=== PATIENT | female | born 1990 | race Caucasian/White ===

== ENCOUNTER → 2022-02-25 11:49 | Outpatient (BNVA) | payer SELFPAY | PROVIDERS: Visit Provider Nurse Practitioner Women's Health | DX: N92.6 Irregular menstruation, unspecified (principal); Z12.4 Encounter for screening for malignant neoplasm of cervix | CPT/HCPCS: 84146; 84439; 84443; 84702; 85025; 87624 ==

== ENCOUNTER → 2022-03-24 14:27 | Outpatient (BNVA) | payer SELFPAY | PROVIDERS: Visit Provider Nurse Practitioner Women's Health | DX: N92.6 Irregular menstruation, unspecified (principal) | CPT/HCPCS: 76830 ==

== ENCOUNTER → 2022-03-25 10:51 | Outpatient (BNVA) | payer SELFPAY | PROVIDERS: Visit Provider Nurse Practitioner Women's Health | DX: N92.6 Irregular menstruation, unspecified (principal); N93.9 Abnormal uterine and vaginal bleeding, unspecified; D25.9 Leiomyoma of uterus, unspecified | CPT/HCPCS: 81025; 88305 ==

== ENCOUNTER 2022-07-09 17:10 | Emergency (ER) | payer BC, SELFPAY ==
[2022-07-09 17:23] VITALS: BP 142/93; PULSE 89; RESP 20; TEMP 36.7; O2SAT 98; BMI 33.3
[2022-07-09 18:28] LABS: Basophils # 0.1 10^3/uL (0.0-0.1); Basophils % 0.7 %; Eosinophils # 0.6 10^3/uL (0.0-0.8); Eosinophils % 4.9 %; Hematocrit 40.4 % (37.0-47.0); Hemoglobin 13.2 g/dL (11.5-15.3); Lymphocytes # 2.9 10^3/uL (0.8-4.8); Lymphocytes % 25.2 %; Mean Corpuscular HGB Conc 32.7 g/dL (30.0-36.0); Mean Corpuscular Hemoglobin 27.8 pg (28.0-34.0); Mean Corpuscular Volume 85.1 fl (81-99); Mean Platelet Volume 9.5 fL (7.4-10.4); Monocytes % 8.6 %; Neutrophils # 6.95 10^3/uL (1.8-7.7); Nucleated Red Blood Cells % 0 %; Platelet Count 514 10^3/cmm (130-400); Red Blood Count 4.75 10^6/uL (4.1-5.3); White Blood Count 11.6 10^3/uL (4.0-10.0)
[2022-07-09 18:43] LABS: HCG, Serum Qual Negative (Negative)
[2022-07-09 18:46] LABS: Alanine Aminotransferase 40 U/L (0-33); Alkaline Phosphatase 91 U/L (35-105); Anion Gap 14.2 (5-19); Aspartate Amino Transferase 23 U/L (0-32); Blood Urea Nitrogen 8 mg/dL (6-20); Calcium 9.3 mg/dL (8.5-10.5); Carbon Dioxide 22 mmol/L (22-29); Chloride 106 mmol/L (98-107); Globulin 2.5 g/dL (1.3-4.6); Glomerular Filtration Rate 95.8 mL/min (90-130); Glucose 115 mg/dL (65-115); Osmolality Calculated 285 mOsm/kg (285-295); Potassium 4.2 mmol/L (3.5-5.1); Sodium 138 mmol/L (136-145); Total Bilirubin 0.2 mg/dL (0.15-1.2); Total Protein 6.5 g/dL (6.6-8.7)
--- NOTE | 2022-07-09 19:24 | ED_ITS ---
HPI - Female Genitourinary General: Chief complaint: Urogenital-Female Stated complaint: heavy vaginal bleeding x2days Time Seen by Provider: 07/09/22 19:17 Source: patient Mode of arrival: ambulatory Limitations: no limitations History of Present Illness: This patient comes to the emergency department today because she has had heavier than usual bleeding over the past 2 days. She states she has been changing a pad every hour or so and she is also been passing clots. This is unusual for her. She denies any fevers or chills. She denies any syncope, pelvic pain, fevers chills etc. She states she is been taking all her prescribed medications. She does not take any anticoagulants or antiplatel et medications and does not have a history of bleeding disorder. Vaginal bleeding: heavy, clots and # pads per hour (1) Associated symptoms: Reports no associated symptoms; Deny abdominal pain, headache(s), nausea or syncope Related Data: : 0 Para: 0 Review of Systems Const: Denies: fever(s) or chills Eyes: Denies: change in vision ENMT: Denies: throat pain, odynophagia, nasal discharge or nasal congestion Card: Denies: chest pain, palpitations, syncope or pre-syncope Resp: Denies: dyspnea, productive cough or non-productive cough GI: Denies: abdominal pain, nausea or vomiting : Reports: vaginal bleeding; Denies: difficulty voiding or dysuria Musc: Denies: back pain, extremity pain or extremity swelling Neuro: Denies: headache(s), numbness in extremities or weakness in extremities Endo: Denies: polyuria, polydipsia or tired all the time PFSH ED 2 PFSH: Medical History Hypertension No pertinent past medical history neghx: dm,thyroid,dvt/pe PCP: Amanda Hardwick Schizo affective schizophrenia Surgical History No pertinent past surgical history Family History Mother Diabetes Hypertension Stroke Endometriosis Father Heart disease Hypertension Stroke Grandfather Heart disease Paternal Hypertension Maternal and Paternal Grandmother Hypertension Maternal and Paternal Ovarian cancer Maternal--dx age 60's Denies family history of Colon cancer Hypercholesteremia Breast cancer Uterine cancer Thyroid disease Social History Smoking and tobacco status: former smoker (quit in 2011) Female Reproductive History: : 0 Physical Exam Narrative: EXAM NARRATIVE: Eye contact appears to be in no acute distress. Answers questions appropriately in a goal-directed fashion. Const: COMMON NORMALS: no acute distress, patient oriented x3 and alert NUTRITIONAL APPEARANCE: overweight HENMT: COMMON NORMALS: normocephalic and Normal nasal mucous membranes and turbinates present HEAD & SCALP: normocephalic NOSE: Normal nasal mucous membranes and turbinates present Eye: COMMON NORMALS: Equal, round and reactive pupils present PUPIL: Yes Equal, round and reactive pupils present Neck/C-Spine: COMMON NORMALS: full ROM Resp: COMMON NORMALS: normal respiratory effort, No retractions and No use of accessory muscles : COMMON NORMALS: Yes no CVA tenderness BLADDER/KIDNEY EXAM: Yes no CVA tenderness Back/Pelvis: COMMON NORMALS: no CVA tenderness and thoracic and lumbar spine normal to inspection Extremity: COMMON NORMALS: normal to inspection and full ROM Neuro: COMMON NORMALS: patient oriented x3, moves all extremities, no focal motor deficits and no sensory deficits noted SENSORIUM/ORIENTATION: Yes alert Psych: COMMON NORMALS: mental status grossly normal Skin: COMMON NORMALS: no rashes or lesions noted GENERAL SKIN EXAM: no rashes or lesions noted Course Consultations: Consultation #1: Discussed with Dr. Diaz regarding potential treatment options. Time: 19:41 Vital Signs: Vital signs: Vital Signs Temperature 98.0 F 07/09/22 17:23 Pulse Rate 88 07/09/22 19:26 Respiratory Rate 16 07/09/22 19:26 Blood Pressure 142/109 07/09/22 19:26 Pulse Oximetry 98 07/09/22 19:26 Oxygen Delivery Me thod 07/09/22 19:[address] [facility] - Female Medical Decision Making This patient presented to emergency department with a history of abnormal vagina l bleeding likely as result of a combination of polycystic ovarian disease as well as a large uterine fibroid. She was concerned because she had heavier bleeding over the past 2 days with clot formation. No syncope or other concerning findings to include abdominal pain etc. Her work-up today revealed a negative hCG as well as a hemoglobin and platelet count essentially unchanged from previous. Clinical exam was also reassuring. Her case was discussed with on-call HOME STAGING SPECIALIST as well. We discussed options to include a short course of TXA as well as a short course of anti-inflammatories and given the risk-benefit profile of each the latter was chosen in an attempt to reduce her bleeding but however she was again reassured by our discussion that her hemoglobin and other blood parameters were reassuring and unchanged. Is being discharged in a stable condition with follow-up in 2 weeks as scheduled for her surgery we also discussed return precautions should she have heavier bleeding, syncope, or other concerning symptoms at any time. Medical Records I reviewed the patient's medical records. Reviewed notes from HOME STAGING SPECIALIST work-up that if been significant for abnormal vaginal bleeding likely due to PCOS. She also has a uterine fibroid which may be a contributing factor as well. Lab Data I reviewed the patient's lab results. 07/09/22 18:10 07/09/22 18:10 Laboratory Results WBC 11.6 10^3/uL (4.0-10.0) H 07/09/22 18:10 RBC 4.75 10^6/uL (4.1-5.3) 07/09/22 18:10 Hgb 13.2 g/dL (11.5-15.3) 07/09/22 18:10 Hct 40.4 % (37.0-47.0) 07/09/22 18:10 MCV 85.1 fl (81-99) 07/09/22 18:10 MCH 27.8 pg (28.0-34.0) L 07/09/22 18:10 MCHC 32.7 g/dL (30.0-36.0) 07/09/22 18:10 RDW 13.0 % (12.1-15.1) 07/09/22 18:10 Plt Count 514 10^3/cmm (130-400) H 07/09/22 18:10 MPV 9.5 fL (7.4-10.4) 07/09/22 18:10 Neut % (Auto) 60.0 % 07/09/22 18:10 Lymph % (Auto) 25.2 % 07/09/22 18:10 [place] % (Auto) 8.6 % 07/09/22 18:10 Eos % (Auto) 4.9 % 07/09/22 18:10 Baso % (Auto) 0.7 % 07/09/22 18:10 Neut # (Auto) 6.95 10^3/uL (1.8-7.7) 07/09/22 18:10 Lymph # (Auto) 2.9 10^3/uL (0.8-4.8) 07/09/22 18:10 [place] # (Auto) 1.0 10^3/uL (0.2-0.9) H 07/09/22 18:10 Eos # (Auto) 0.6 10^3/uL (0.0-0.8) 07/09/22 18:10 Baso # (Auto) 0.1 10^3/uL (0.0-0.1) 07/09/22 18:10 Nucleated RBC % (auto) 0 % 07/09/22 18:10 Nucleated RBCs # 0.0 /100WBC 07/09/22 18:10 Sodium 138 mmol/L (136-145) 07/09/22 18:10 Potassium 4.2 mmol/L (3.5-5.1) 07/09/22 18:10 Chloride 106 mmol/L (98-107) 07/09/22 18:10 Carbon Dioxide 22 mmol/L (22-29) 07/09/22 18:10 Anion Gap 14.2 (5-19) 07/09/22 18:10 BUN 8 mg/dL (6-20) 07/09/22 18:10 Creatinine 0.7 mg/dL (0.5-0.9) 07/09/22 18:10 GFR Calculation 95.8 mL/min (90-130) 07/09/22 18:10 Glucose 115 mg/dL (65-115) 07/09/22 18:10 Calculated Osmolality 285 mOsm/kg (285-295) 07/09/22 18:10 Calcium 9.3 mg/dL (8.5-10.5) 07/09/22 18:10 Total Bilirubin 0.2 mg/dL (0.15-1.2) 07/09/22 18:10 AST 23 U/L (0-32) 07/09/22 18:10 ALT 40 U/L (0-33) H 07/09/22 18:10 Alkaline Phosphatase 91 U/L (35-105) 07/09/22 18:10 Total Protein 6.5 g/dL (6.6-8.7) L 07/09/22 18:10 Albumin 4.0 g/dL (3.5-5.2) 07/09/22 18:10 Globulin 2.5 g/dL (1.3-4.6) 07/09/22 18:10 HCG, Qual Negative (Negative) 07/09/22 18:10 Discharge Plan Discharge Patient Disposition: Home Clinical Impression: Abnormal vaginal bleeding Condition: Stable Prescriptions: New naproxen sodium [Anaprox DS] 550 mg tablet 550 mg PO BID Qty: 20 0RF No Action metoprolol tartrate 25 mg tablet 12.5 mg PO BID venlafaxine 150 mg tablet extended release 24 hr 150 mg PO DAILY bupropion HCl [Wellbutrin XL] 300 mg tablet extended release 24 hr 300 mg PO QAM lisinopril 20 mg tablet 20 mg PO DAILY risperidone [Risperdal] 2 mg tablet 2 mg PO DAILY hydroxyzine HCl 25 mg tablet 25 mg PO BID PRN multivitamin Tablet 1 tab PO DAILY tranexamic acid [Lysteda] 650 mg tablet 1,300 mg PO TID 5 Days Qty: 30 0RF Discharge Orders: Discharge ED (Routine); Ordered 07/09/22 Ordered By: Jarret Vidales Referrals: Jarret Johnson MD [Physician] - 2 weeks Amanda Hardwick [Primary Care Provider] - Discharge Diet: Usual diet Discharge Activity: Increase activity as tolerated Patient Instructions: Opioid Safety, Pain Management Activity Restrictions/Additional Instructions: Continue all your usual prescribed medications. In addition we have prescribed a medicine to take 1 pill twice daily for the next 5 or so days to help reduce your bleeding and other discomfort. Should your bleeding continue or at the s conrad level or increase or you develop symptoms of fatigue, passing out etc. return to this emergency department immediately. Otherwise follow-up with Dr. Johnson as scheduled for your surgery. Coding Level of Care Code ED Mechanic Chief for Monica Thacker
[2022-07-09 19:26] VITALS: BP 142/109; PULSE 88; RESP 16; O2SAT 98
[2022-07-09] MEDS: naproxen 500 mg Tablet PO (19:59)
[2022-07-09 20:02] VITALS: PULSE 84; RESP 16; O2SAT 100
== END 2022-07-09 20:03 | disposition home or self-care (01) ==
PROVIDERS: Emergency Medicine; Emergency Provider Emergency Medicine; PCP Nurse Practitioner Family
DX: N93.9 Abnormal uterine and vaginal bleeding, unspecified (principal)
CPT/HCPCS: 36415; 80053; 84703; 85025; 99283

== ENCOUNTER 2022-07-22 12:26 | Observation (INO) | payer BC, SELFPAY ==
[2022-07-20 11:56] VITALS: BMI 36.9
[2022-07-20 12:04] LABS: Add Urine Microscopic? NO; Charge for UA Resulting for Rev
[2022-07-20 12:06] LABS: Basophils # 0.1 10^3/uL (0.0-0.1); Basophils % 0.6 %; Eosinophils # 0.4 10^3/uL (0.0-0.8); Eosinophils % 4.4 %; Hematocrit 37.6 % (37.0-47.0); Lymphocytes # 2.1 10^3/uL (0.8-4.8); Lymphocytes % 23.9 %; Mean Corpuscular HGB Conc 31.9 g/dL (30.0-36.0); Mean Corpuscular Hemoglobin 27.3 pg (28.0-34.0); Mean Corpuscular Volume 85.6 fl (81-99); Mean Platelet Volume 9.7 fL (7.4-10.4); Monocytes # 0.8 10^3/uL (0.2-0.9); Monocytes % 9.3 %; Neutrophils # 5.44 10^3/uL (1.8-7.7); Neutrophils % 61.2 %; Nucleated Red Blood Cells % 0 %; Platelet Count 424 10^3/cmm (130-400); Red Blood Count 4.39 10^6/uL (4.1-5.3); Red Cell Distribution Width 13.1 % (12.1-15.1); White Blood Count 8.9 10^3/uL (4.0-10.0)
[2022-07-20 12:20] LABS: Bilirubin Urine Neg (Negative); Blood Urine Neg (Negative); Glucose Urine UA Norm (Normal); Ketones Urine Negative (Negative); Leukocyte Esterase Urine Negative (Negative); Nitrate Urine Negative (Negative); Protein Urine Neg (Negative); Specific Gravity, Urine 1.025 (1.005-1.030); Urine Appearance Clear (CLEAR); Urine Color Yellow (Yellow); Urobilinogen Urine Norm (Negative); pH Urine 5 (5-7)
--- NOTE | 2022-07-20 12:25 | P.ANESASSM_ITS ---
Pre-Anesthetic Assessment Height/Weight: Height 1.65 m Weight 100.698 kg Preop Diagnosis: Uterine fibroid Operation Date: 07/22/22 09:20 Proposed Procedures p Myomectomy 88440,D25.9(Not Applicable) - Jarret Johnson MD Familial anesthetic complications: PONV Was Beta Aracelis taken within 24 hours: Yes Was Clonidine taken within 24 hours: N/A Social Tobacco (vapes) and No alcohol Exam alert, oriented x 3, clear to auscultation bilaterally and regular rate & rhythm Airway Submandibular: within normal limits Cervical ROM: within normal limits Mallampati: Class II Dentition: full CV/HEM Anemia and Hypertension Neuropsych Schizoaffective Anesthetic Plan ASA status: 3 Anesthesia: General and Regional (specify below) (bilateral TAP blk) Other: >?Droperidol for PONV Medications/Allergies Home Medications Medication Instructions Recorded Confirmed Last Taken Type bupropion HCl 300 mg 24 hr tablet, 300 mg PO QAM 02/25/22 07/20/22 07/20/22 History extended release (Wellbutrin XL) hydroxyzine HCl 25 mg tablet 25 mg PO BID PRN Anxiety 02/25/22 07/20/22 07/18/22 History lisinopril 20 mg tablet 40 mg PO DAILY 02/25/22 07/20/22 07/20/22 History risperidone 2 mg tablet (Risperdal) 2 mg PO DAILY 02/25/22 07/20/22 07/20/22 History venlafaxine 150 mg tablet,extended 112.5 mg PO DAILY 02/25/22 07/20/22 07/20/22 History release 24 hr multivitamin 1 tab PO DAILY 03/25/22 07/20/22 07/20/22 History naproxen sodium 550 mg tablet 550 mg PO BID #20 tabs 07/09/22 07/20/22 07/20/22 Rx (Anaprox DS) labetalol 100 mg tablet 100 mg PO BID 07/20/22 07/20/22 07/20/22 History norethindrone acetate 5 mg tablet 5 mg PO DAILY 07/20/22 07/20/22 07/20/22 History Allergies Allergy/AdvReac Type Severity Reaction Status Date / Time No Known Allergies Allergy Verified 05/08/22 13:14 [facility] Anesthesia Medical History Hypertension No pertinent past medical history neghx: dm,thyroid,dvt/pe PCP: Amanda Hardwick Schizo affective schizophrenia Surgical History No pertinent past surgical history Family History Mother Diabetes Hypertension Stroke Endometriosis Father Heart disease Hypertension Stroke Grandfather Heart disease Paternal Hypertension Maternal and Paternal Grandmother Hypertension Maternal and Paternal Ovarian cancer Maternal--dx age 60's Denies family history of Colon cancer Hypercholesteremia Breast cancer Uterine cancer Thyroid disease Social History Smoking and tobacco status: former smoker (quit in 2011) Female Reproductive History Date of last menstrual period: 04/11/22 Data Anesthesia 07/20/22 11:45 07/20/22 11:45 Short CBC 07/20/22 Range/Units 11:45 WBC 8.9 (4.0-10.0) 10^3/uL Hgb 12.0 (11.5-15.3) g/dL Hct 37.6 (37.0-47.0) % MCV 85.6 (81-99) fl Plt Count 424 H (130-400) 10^3/cmm Neut % (Auto) 61.2 % Neut # (Auto) 5.44 (1.8-7.7) 10^3/uL Urine 07/20/22 Range/Units 11:45 Urine Color Yellow (Yellow) Urine Appearance Clear (CLEAR) Urine pH 5 (5-7) Ur Specific [place] 1.025 (1.005-1.030) Urine Protein Neg (Negative) Urine Glucose (UA) Norm (Normal) Urine Ketones Negative (Negative) Urine Nitrate Negative (Negative) Urine Bilirubin Neg (Negative) Ur Leukocyte Esterase Negative (Negative) Cardiac Studies: No Data to Display
[2022-07-20 12:30] LABS: Alanine Aminotransferase 35 U/L (0-33); Albumin Level 4.3 g/dL (3.5-5.2); Alkaline Phosphatase 93 U/L (35-105); Aspartate Amino Transferase 18 U/L (0-32); Blood Urea Nitrogen 9 mg/dL (6-20); Carbon Dioxide 21 mmol/L (22-29); Chloride 105 mmol/L (98-107); Globulin 2.3 g/dL (1.3-4.6); Glomerular Filtration Rate 95.8 mL/min (90-130); Glucose 100 mg/dL (65-115); Osmolality Calculated 281 mOsm/kg (285-295); Sodium 136 mmol/L (136-145); Total Bilirubin 0.2 mg/dL (0.15-1.2); Total Protein 6.6 g/dL (6.6-8.7)
[2022-07-22] VITALS (19 sets, daily range): BP systolic 113–142; BP diastolic 65–101; PULSE 67–104; RESP 14–21; TEMP 36.2–37.1; O2SAT 90–98
[2022-07-22] MEDS: sodium chloride 0.9% 500 ML IV (08:38)
[2022-07-22] MEDS: scopolamine 1.5 Patch 1 PATCH TRANSDERMA (08:38)
[2022-07-22] MEDS: midazolam 1 mg/mL INJ 2 mL 2 MG IVP (08:43)
[2022-07-22 08:53] LABS: OR HCG Qualitative Urine Negative (Negative)
[2022-07-22] MEDS: sodium chloride 0.9% 1,000 ML 30 ML IV (09:02)
--- NOTE | 2022-07-22 09:08 | W.PM.OPSUD ---
Surgery/Procedure H&P Update DATE OF PROCEDURE: July 22, 2022 DATE H&P PERFORMED: 07/20/22 H&P UPDATE INFORMATION: I have reviewed H&P completed within last 30 days, I have examined patient prior to procedure and No changes to prior documentation PREOP DIAGNOSIS: Uterine fibroid PLANNED PROCEDURE: Operation Date: 07/22/22 09:20 Proposed Procedures p Myomectomy 64708,D25.9(Not Applicable) - Jarret Johnson MD
[2022-07-22] MEDS: ceFAZolin 3,000 MG in sodium chloride 0.9% (100 ml) 100 ML 200 MG IV (09:28)
--- NOTE | 2022-07-22 10:05 | P.ANESUD_ITS ---
Pre-Anesthetic Update Pre-Anesthetic Assessment: Date of Surgery/Procedure: 07/22/22 Preop Bridget gnosis: Uterine fibroid Proposed Procedure: Operation Date: 07/22/22 09:20 Proposed Procedures p Myomectomy 25688,D25.9(Not Applicable) - Jarret Johnson MD Any changes to Pre-Anesthetic Assessment?: No Last Intake: Intake Last Liquid Date 07/21/22 Last Liquid Time 18:30 Last Solid Date 07/21/22 Last Solid Time 18:30 Labs Last 48hrs: Short CBC 07/20/22 Range/Units 11:45 WBC 8.9 (4.0-10.0) 10^3/ uL Hgb 12.0 (11.5-15.3) g/dL Hct 37.6 (37.0-47.0) % MCV 85.6 (81-99) fl Plt Count 424 H (130-400) 10^3/c mm Neut % (Auto) 61.2 % Neut # (Auto) 5.44 (1.8-7.7) 10^3/u L BMP 07/20/22 11:45 Sodium 136 Potassium 4.0 Chloride 105 Carbon Dioxide 21 L BUN 9 Creatinine 0.7 Glucose 100 Calcium 9.0 Liver Function 07/20/22 Range/Units 11:45 Total Bilirubin 0.2 (0.15-1.2) mg/dL AST 18 (0-32) U/L ALT 35 H (0-33) U/L Alkaline Phosphata se 93 (35-105) U/L Albumin 4.3 (3.5-5.2) g/dL Urine 07/20/22 Range/Units 11:45 Urine Color Yellow (Yellow) Urine Appearance Clear (CLEAR) Urine pH 5 (5-7) Ur Specific Gravit y 1.025 (1.005-1.030) Urine Protein Neg (Negative) Urine Glucose (UA) Norm (Normal) Urine Ketones Negative (Negative) Urine Nitrate Negative (Negative) Urine Bilirubin Neg (Negative) Ur Leukocyte Sherly ase Negative (Negative) Blood Bank 07/20/22 11:45 Blood Type O Positive Rho(D) Type Positive Antibody Screen Negative Vitals: Temperature 97.8 F 07/22/22 08:22 Temperature Source Temporal Artery S can 07/22/22 08:22 Pulse Rate 101 H 07/22/22 08:22 Respiratory Rate 18 07/22/22 08:22 Blood Pressure 142/88 07/22/22 08:47 Blood Pressure Jodie n 106 07/22/22 08:47 Pulse Oximetry 96 07/22/22 08:22 Oxygen Delivery Me thod 07/22/22 08:36 Exam: Pre-Anes Outpt Exam: alert, oriented x 3, clear to auscultation bilaterally and regular rate & rhythm Cardiac Studies: No Data to Display Anesthesia Procedures Nerve Block: Nerve Block 1: Main Anesthesia: general anesthesia Time Out Performed: Yes Consent: from patient, risks and benefits reviewed and patient agrees to proceed Nerve block location: other (Bilateral TAP blks) Anesthesia monitors applied: pulse oximetry, EKG, BP cuff and oxygen Nerve block position: supine Anesthetic Used: ropivicaine 0.5% Amount of anesthesia used (mL): 30 Ultrasound used to: recognize landmarks Nerve Stimulator Used?: No Interscalene/Femoral BLK: 2 stimuplex 22 g needle used for position and inplane approach Injection: neg aspiration of heme Patient Tolerated Procedure: well Complications: none
[2022-07-22] MEDS: vasopressin 20 unit/mL INJ 4 UNIT INJECTION (10:24)
[2022-07-22] MEDS: acetaminophen 1,000 MG/100 ML PIGGYBACK 400 MG IV (10:31)
--- NOTE | 2022-07-22 11:20 | P.OP_ITS ---
Operative Report Date of procedure: July 22, 2022 Pre-op diagnosis: Preop Diagnosis Uterine fibroid Post-op diagnosis: Same as above Procedure done: Myomectomy Specimens removed/disposition: Uterine fibroid Surgeon: Jarret Johnson MD Estimated blood loss (mL): 50 IV fluids (mL): 1,000 Urine output (mL): 150 Findings: Moderate sized irregular uterine fibroid approximately 5 cm on anterior right side of the uterine Procedure: After assuring informed consent, the patient was taken to the operating room and anesthesia was initiated. She was placed in the dorsal supine position with a left lateral tilt. The abdomen was prepped and draped in the usual sterile manner. A time-out procedure was performed. A Pfannenstiel skin incision was made with the scalpel and carried through to the underlying layer of fascia with the Bovie. The fascia was nicked in the midline and the incision extended laterally with the Pace scissors. The superior aspect of the fascial incision was then grasped with Blanca clamps and elevated and the underlying rectus muscle dissected off bluntly and sharp with pace scissors. Attention was then turned to the inferior aspect of the incision which, in s imilar fashion, was grasped and tented up with Blanca clamps and the rectus muscle dissected bluntly. The rectus muscles were then in the midline and the peritoneum identified, tented up and entered sharply with Metzenbaum scissors. The peritoneal incision was then extended superiorly and inferiorly with good visualization of the bladder. The Andrade O retractor was then inserted and the uterus exteriorized. The uterus was grasped and methylene blue was infiltrated into the uterine cavity and bilateral fallopian tubes spillage of methylene blue was noted. Then the leiomyoma was noted on the anterior right side of the uterus. Vasopressin was infiltrated circumferentially around the leiomyoma. The uterine incision was made over the leiomyoma cutting a linear incision along the top of the fundal right fibroid until fibroid fibers were seen. The edges of the myometrium was grasped with Allis clamps, tented up, and a hemostat was used to bluntly dissect around the fibroid followed by blunt dissection with a finger. The fibroid was easily and bluntly dissected out. The myometrium was reapproximated with 0 Vicryl and the uterus was closed in layers. The serosal layer was closed with baseball stitch suture suture with 0 Vicryl with excellent hemostasis. The uterus was seen to be completely hemostatic after closure. The gutters were cleared of all clots. The uterus was then returned to the abdomen. The rectus muscles were reapproximated with 0 chromic gut. The fascia was reapproximated with 0 Vicryl in an interrupted running fashion locked at midpoint. Next, the Narciso's fascia was closed with #3-0 plain gut in a running fashion and the skin was closed with Insorb?s subcuticular absorbable librado. The incision was infiltrated with Exparel for postoperative pain management. The patient tolerated the procedure well. The sponge, lap and needle counts were correct times three. After the patient was cleaned, she was taken to Recovery in stable condition.
[2022-07-22] MEDS: fentaNYL 50 mcg/mL INJ 2mL IVP (12:09)
[2022-07-22] MEDS: dextrose 5%-lactated ringers 1,000 ML 125 ML IV ×2 (13:34→21:01)
[2022-07-22] MEDS: HYDROcodone-acetaminophen 5-325 mg Tablet PO ×2 (13:35→19:28)
--- NOTE | 2022-07-22 15:54 | ANE.PACU2 ---
Inpatient post-anesthesia follow up: Airway intact: Yes Vital signs: Temperature 98.1 F Pulse Rate 87 Respiratory Rate 16 Blood Pressure 133/82 Pulse Oximetry 93 Oxygen Delivery Me thod Room Air Oxygen Flow Rate 6 Fraction of Inspir ed Oxygen Hydration adequate: Yes Nausea and vomiting: No Pain level: 2 Mental status: Baseline
[2022-07-22] MEDS: labetalol 200 mg Tablet 100 MG PO (18:06)
[2022-07-22] MEDS: docusate sodium 100 mg Capsule PO (18:06)
[2022-07-22] MEDS: ketorolac 30 mg/mL INJ IVP (18:07)
[2022-07-22] MEDS: risperiDONE 2 mg Tablet PO (20:55)
[2022-07-22] MEDS: venlafaxine ER (24HR) 75 mg Capsule PO (20:56)
[2022-07-22] MEDS: buPROPion XL (24 HR) 300 mg Tablet PO (20:56)
[2022-07-22] MEDS: venlafaxine ER (24HR) 37.5 mg Capsule PO (20:56)
[2022-07-22] MEDS: acetaminophen 325 mg Tablet 650 MG PO (23:27)
--- NOTE | 2022-07-22 23:41 | PC.NURSE ---
When this nurse went into the room to obtain vitals patient reported that she was unable to sleep. I asked her if she was in pain and she said that if she stayed still she was not but if she moved any her pain was 5/10. I gave her tylenol as she can not have hydrocodone yet. I asked her if she wanted a warm blanket but she declined. She decided to sit up in bed and eat a snack and then said she will try to fall asleep again.
[2022-07-23] MEDS: ketorolac 30 mg/mL INJ IVP (00:22)
[2022-07-23] MEDS: HYDROcodone-acetaminophen 5-325 mg Tablet PO ×3 (01:35→14:00)
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
[2022-07-23 04:08] VITALS: BP 116/82; PULSE 87; RESP 18; TEMP 36.7; O2SAT 98
[2022-07-23] MEDS: ibuprofen 800 mg tablet PO ×2 (05:56→14:00)
[2022-07-23 06:08] LABS: Hemoglobin 11.5 g/dL (11.5-15.3); Mean Corpuscular HGB Conc 31.9 g/dL (30.0-36.0); Mean Corpuscular Hemoglobin 27.6 pg (28.0-34.0); Mean Corpuscular Volume 86.3 fl (81-99); Mean Platelet Volume 9.9 fL (7.4-10.4); Platelet Count 440 10^3/cmm (130-400); Red Blood Count 4.17 10^6/uL (4.1-5.3); Red Cell Distribution Width 13.3 % (12.1-15.1); White Blood Count 21.9 10^3/uL (4.0-10.0)
--- NOTE | 2022-07-23 08:25 | P.DS_ITS ---
Discharge Providers ENTERTAINMENT MANAGER Date of Admission: 07/22/22 12:26 Date of Discharge: 07/23/22 Attending Provider at Admission: Jarret Johnson MD Attending Provider at Discharge: Jarret Johnson MD Primary Care Provider: Amanda Hardwick Reason for Visit Reason for Visit: D25.9 Hospital Course Hospital Course Mrs. Santos 32-year-old female G0, P0 with a uterine fibroid. Admitted for my omectomy. The procedure was performed without complications. Overnight observation uneventful. Tolerating diet well. She is afebrile hemodynamically stable postoperative day 1. Tolerating diet well. Ambulating without difficulty. Pain well under control. Patient was counseled regarding pelvic rest for 6 weeks (no sex, no tampons, no vaginal douches). Return to the emergency room if any fever, increased bleeding or pain. Physical Exam Narrative: GA: Alert and oriented ?3. HEENT: WNL. Heart: Regular rate and rhythm. Lungs: Clear to auscultation bilaterally. Abdomen: Bowel sounds present, nontender, minimal tenderness, incision clean and dry, no redness, pain or edema. 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 Extremities: No edema, no cyanosis, no calves pain. Urinary Catheter Management: [place]: Cath Placed During This Visit: yes, but has since been removed by the nurse Reason for Continuing Indwelling Catheter: Decision to DC Catheter Urinary Catheter Date of Insertion: 07/22/22 Urinary Catheter Time of Insertion: 09:45 Date Urinary Catheter Removed: 07/23/22 Time Urinary Catheter Discontinued: 05:40 History History History 2 Term 0 0 Miscarriages/Ectopic 2 Living Children 0 Discharge Data Studies Completed and Pending Pending at discharge Category Date Time Status Pathology: Surgical [PTH] Routine Pth 07/22/22 11:10 Received Laboratory Results WBC 21.9 10^3/uL (4.0-10.0) H 07/23/22 05:40 RBC 4.17 10^6/uL (4.1-5.3) 07/23/22 05:40 Hgb 11.5 g/dL (11.5-15.3) 07/23/22 05:40 Hct 36.0 % (37.0-47.0) L 07/23/22 05:40 MCV 86.3 fl (81-99) 07/23/22 05:40 MCH 27.6 pg (28.0-34.0) L 07/23/22 05:40 MCHC 31.9 g/dL (30.0-36.0) 07/23/22 05:40 RDW 13.3 % (12.1-15.1) 07/23/22 05:40 Plt Count 440 10^3/cmm (130-400) H 07/23/22 05:40 MPV 9.9 fL (7.4-10.4) 07/23/22 05:40 Neut % (Auto) 61.2 % 07/20/22 11:45 Lymph % (Auto) 23.9 % 07/20/22 11:45 [place] % (Auto) 9.3 % 07/20/22 11:45 Eos % (Auto) 4.4 % 07/20/22 11:45 Baso % (Auto) 0.6 % 07/20/22 11:45 Neut # (Auto) 5.44 10^3/uL (1.8-7.7) 07/20/22 11:45 Lymph # (Auto) 2.1 10^3/uL (0.8-4.8) 07/20/22 11:45 [place] # (Auto) 0.8 10^3/uL (0.2-0.9) 07/20/22 11:45 Eos # (Auto) 0.4 10^3/uL (0.0-0.8) 07/20/22 11:45 Baso # (Auto) 0.1 10^3/uL (0.0-0.1) 07/20/22 11:45 Nucleated RBC % (auto) 0 % 07/20/22 11:45 Nucleated RBCs # 0.0 /100WBC 07/20/22 11:45 Sodium 136 mmol/L (136-145) 07/20/22 11:45 Potassium 4.0 mmol/L (3.5-5.1) 07/20/22 11:45 Chloride 105 mmol/L (98-107) 07/20/22 11:45 Carbon Dioxide 21 mmol/L (22-29) L 07/20/22 11:45 Anion Gap 14.0 (5-19) 07/20/22 11:45 BUN 9 mg/dL (6-20) 07/20/22 11:45 Creatinine 0.7 mg/dL (0.5-0.9) 07/20/22 11:45 GFR Calculation 95.8 mL/min (90-130) 07/20/22 11:45 Glucose 100 mg/dL (65-115) 07/20/22 11:45 Calculated Osmolality 281 mOsm/kg (285-295) L 07/20/22 11:45 Calcium 9.0 mg/dL (8.5-10.5) 07/20/22 11:45 Total Bilirubin 0.2 mg/dL (0.15-1.2) 07/20/22 11:45 AST 18 U/L (0-32) 07/20/22 11:45 ALT 35 U/L (0-33) H 07/20/22 11:45 Alkaline Phosphatase 93 U/L (35-105) 07/20/22 11:45 Total Protein 6.6 g/dL (6.6-8.7) 07/20/22 11:45 Albumin 4.3 g/dL (3.5-5.2) 07/20/22 11:45 Globulin 2.3 g/dL (1.3-4.6) 07/20/22 11:45 Urine Color Yellow (Yellow) 07/20/22 11:45 Urine Appearance Clear (CLEAR) 07/20/22 11:45 Urine pH 5 (5-7) 07/20/22 11:45 Ur Specific [place] 1.025 (1.005-1.030) 07/20/22 11:45 Urine Protein Neg (Negative) 07/20/22 11:45 Urine Glucose (UA) Norm (Normal) 07/20/22 11:45 Urine Ketones Negative (Negative) 07/20/22 11:45 Urine Blood Neg (Negative) 07/20/22 11:45 Urine Nitrate Negative (Negative) 07/20/22 11:45 Urine Bilirubin Neg (Negative) 07/20/22 11:45 Urine Urobilinogen Norm mg/dL (Negative) 07/20/22 11:45 Ur Leukocyte Esterase Negative (Negative) 07/20/22 11:45 Urine HCG, Qual Negative (Negative) 07/22/22 08:11 Blood Type O Positive 07/20/22 11:45 Rho(D) Type Positive 07/20/22 11:45 Antibody Screen Negative 07/20/22 11:45 Vitals Last Vital Signs Temp 98.1 F 07/23/22 04:08 Pulse 87 07/23/22 04:08 Resp 18 07/23/22 04:08 BP 116/82 07/23/22 04:08 Pulse Ox 98 07/23/22 04:08 O2 Del Method 07/23/22 04:08 O2 Flow Rate 6 07/22/22 11:40 Discharge Plan Discharge Patient Disposition: Home Condition: Stable Prescriptions: New hydrocodone-acetaminophen 5-325 mg tablet 1 tab PO Q4H PRN (Reason: pain) Qty: 30 0RF acetaminophen 325 mg capsule 325 mg PO Q4H MDD Postoperative pain PRN (Reason: fever or pain) Qty: 60 0RF ibuprofen 800 mg tablet 800 mg PO TID PRN (Reason: pain) Qty: 60 0RF Continued venlafaxine 150 mg tablet extended release 24 hr 112.5 mg PO DAILY bupropion HCl [Wellbutrin XL] 300 mg tablet extended release 24 hr 300 mg PO QAM lisinopril 20 mg tablet 40 mg PO DAILY risperidone [Risperdal] 2 mg tablet 2 mg PO DAILY hydroxyzine HCl 25 mg tablet 25 mg PO BID PRN (Reason: Anxiety) multivitamin Tablet 1 tab PO DAILY norethindrone acetate 5 mg tablet 5 mg PO DAILY naproxen sodium [Anaprox DS] 550 mg tablet 550 mg PO BID Qty: 20 0RF labetalol 100 mg tablet 100 mg PO BID Discharge Orders: Discharge Order (Routine); Ordered 07/23/22 Ordered By: Jarret Johnson Discharge Diet: Usual diet Discharge Activity: Limit activity as instructed Patient Instructions: Opioid Safety, Myomectomy (GEN), Female Infertility (GEN) Activity Restrictions/Additional Instructions: 1. Please call [facility] on next working day to make your post-operative appointment in 2 weeks. 2. Please stay home until you come back to the clinic on first post-operative check up. 3. Please follow instructions on your medications CAREFULLY. 4. If you have abdominal incision, do not cover it unless dressing is necessary because of drainage. OK to shower, but avoid bath. Leave steri-strips until they fall off. If they are still on one week after surgery, you may remove them. 5. If you had vaginal surgery or vaginal repair, Dr. Johnson may instruct you to take SITZ bath. 6. Yellow, blood tinged odorous vaginal discharge is usually normal after hysterectomy or vaginal surgeries. 7. No sexual intercourse, tampons, or douches until you are completely released from the post-operative care. 8. Avoid constipation by eating right and maybe using some Metamucil or Milk of Magnesia. 9. All prescription refills are given during the working hours. Please do no wait till it runs out. Call the clinic at [phone] before your medication runs out. The clinic will get in touch with your doctor to prescribe medications if necessary. 10. Please remain within 40 mile radius from our hospital because emergencies do happen now and then during the post-operative period. 11. If you have stairs at home, take one step at a time slowly and minimize the number of trips. It helps to stay in one floor for the next few days. No lifting except what you can lift by one hand until you are released from the post-operative care. 12. Driving is discouraged until you are well healed. It may be 3-4 weeks before you feel strong enough to drive. You should be able to turn and look through the rear window without pain and you should be able to push the brake pedal very hard without pain before you drive. No fast rules, but SAFETY should be your primary concern. DO NOT drive if you are on sedating medications such as narcotics. 13. Call the clinic (during working hours) to make urgent appointment or go to the Emergency room, if any of the following occurs: i. Vaginal bleeding becomes heavy, more than a period. ii. Incision becomes red and sore, or drains pus. iii. Your temperature is over 100.4 or you have chill. iv. IV site becomes red and swollen (a little ``knot?? is usually OK) v. Persistent nausea and vomiting vi. Persistent constipation or diarrhea vii. Rash or allergic reaction to medications. Discharge Attestations ENTERTAINMENT MANAGER Time Spent in Discharge Care*: greater than 30 min Coding Level of Care Code Acute Code for Chg Fwd
[2022-07-23] MEDS: multivitamin therapeutic Tablet 1 TAB PO (09:05)
[2022-07-23] MEDS: labetalol 200 mg Tablet 100 MG PO (09:05)
[2022-07-23] MEDS: lisinopril 20 mg Tablet 40 MG PO (09:05)
[2022-07-23] MEDS: docusate sodium 100 mg Capsule PO (09:05)
[2022-07-23 09:08] VITALS: BP 134/84; PULSE 89; RESP 16; TEMP 36.6; O2SAT 94
[2022-07-23 14:53] VITALS: BP 117/82; PULSE 77; RESP 16; TEMP 36.6
== END 2022-07-23 14:50 | disposition home or self-care (01) ==
LOC: OBGYN 12:27
PROVIDERS: Admitting Provider Obstetrics & Gynecology; PCP Nurse Practitioner Family; Visit Provider Obstetrics & Gynecology
PROC: (CPT 58140; principal; 2022-07-22 08:50)
DX: D25.9 Leiomyoma of uterus, unspecified (principal); I10 Essential (primary) hypertension
CPT/HCPCS: 58140; 36415; 51702; 80053; 81003; 81025; 84703; 85025; 85027; 86850; 86900; 88309; 96374; 96376; C9290; G0378; J0131; J0690; J1100; J1200; J1885; J2250; J2405; J2704; J2795; J3010; J3490; J7030; J7040; J7121; Q9968

== ENCOUNTER 2022-10-12 11:08 | Outpatient (CLI) | payer OTHER, SELFPAY ==
--- NOTE | 2022-10-12 11:19 | XRR_ITS ---
PROCEDURE INFORMATION: Exam: XR Thoracic Spine Exam date and time: 10/12/2022 12:10 PM Age: 32 years old Clinical indication: Injury or trauma; Work related; Blunt trauma (contusions or hematomas); Injury date: 10/12/22; Patient HX: Slipped backwards falling and hitting her back. ; Additional info: Back injury TECHNIQUE: Imaging protocol: Radiologic exam of the thoracic spine. Views: 3 views. COMPARISON: No relevant prior studies available. FINDINGS: Bones/joints: Normal. No acute fracture. Normal alignment. Soft tissues: Unremarkable. XR/XR thoracic spine 2V [id number] IMPRESSION: No acute findings.
--- NOTE | 2022-10-12 11:19 | XRR_ITS ---
PROCEDURE INFORMATION: Exam: XR Cervical Spine Exam date and time: 10/12/2022 12:10 PM Age: 32 years old Clinical indication: Injury or trauma; Work related; Blunt trauma; Injury date: 10/12/22; Injury details: Slipped backwards falling and hitting her back. ; Additional info: Back injury TECHNIQUE: Imaging protocol: Radiologic exam of the cervical spine. Views: 2 or 3 views. COMPARISON: No relevant prior studies available. FINDINGS: Bones/joints: Normal. No acute fracture. There is reversal of cervical lordosis.. This may reflect muscle spasm Soft tissues: Metallic ring is seen in the left side of the nose soft tissues XR/XR cervical spine 3V* [id number] IMPRESSION: 1. No acute findings. 2. Reversal of cervical lordosis possible muscle spasm
--- NOTE | 2022-10-12 11:19 | XRR_ITS ---
PROCEDURE INFORMATION: Exam: XR Lumbosacral Spine Exam date and time: 10/12/2022 12:10 PM Age: 32 years old Clinical indication: Injury or trauma; Work related; Blunt trauma (contusions or hematomas); Injury date: 10/12/22; Injury details: Slipped backwards falling and hitting her back. ; Additional info: Back injury TECHNIQUE: Imaging protocol: Radiologic exam of the lumbosacral spine. Views: 2 or 3 views. COMPARISON: No relevant prior studies available. FINDINGS: Bones/joints: Normal. No acute fracture. Normal alignment. Soft tissues: Unremarkable. XR/XR lumbar spine 2-3V* [id number] IMPRESSION: No acute findings.
== END 2022-10-12 11:09 | disposition home or self-care (01) ==
PROVIDERS: PCP Nurse Practitioner Family; Visit Provider Nurse Practitioner
DX: S39.92XA Unspecified injury of lower back, initial encounter (principal); X58.XXXA Exposure to other specified factors, initial encounter
CPT/HCPCS: 72040; 72070; 72100

== ENCOUNTER → 2023-01-22 15:45 | Outpatient (BNVA) | payer OTHER, SELFPAY | PROVIDERS: PCP Nurse Practitioner Family; Visit Provider Obstetrics & Gynecology | DX: N92.0 Excessive and frequent menstruation with regular cycle (principal); N93.9 Abnormal uterine and vaginal bleeding, unspecified | CPT/HCPCS: 84146; 84443; 84702; 85025 ==

== ENCOUNTER → 2023-02-01 14:33 | Outpatient (BNVA) | payer OTHER, SELFPAY | PROVIDERS: PCP Nurse Practitioner Family; Visit Provider Obstetrics & Gynecology | DX: N92.0 Excessive and frequent menstruation with regular cycle (principal); E28.2 Polycystic ovarian syndrome | CPT/HCPCS: 76830 ==

== ENCOUNTER 2023-05-27 03:01 | Emergency (ER) | payer BC, SELFPAY ==
[2023-05-27 03:04] VITALS: BP 175/118; PULSE 88; RESP 16; TEMP 36.5; O2SAT 98; BMI 32.3
--- NOTE | 2023-05-27 03:07 | XRR_ITS ---
PROCEDURE INFORMATION: Exam: XR Chest Exam date and time: 05/27/2023 3:17 AM Age: 33 years old Clinical indication: Dyspnea; Chest wall pain; Patient HX: Center chest pain with mild SOB, denies cough, smoker TECHNIQUE: Imaging protocol: Radiologic exam of the chest. Views: 1 view. COMPARISON: CR XR cervical spine 3V* [id number] 10/12/2022 12:10 PM FINDINGS: Lungs: No consolidation. Pleural spaces: Unremarkable. No pleural effusion. No pneumothorax. Heart/Mediastinum: No cardiomegaly. Bones/joints: No acute fracture. XR/XR chest 1V portable [id number] IMPRESSION: No acute findings.
--- NOTE | 2023-05-27 03:07 | ECG_ITS ---
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 Measurements Intervals [place] Rate: 92 P: 39 MS: 139 QRS: 52 QRSD: 89 T: 50 QT: 338 QTc: 420 Interpretive Statements SINUS RHYTHM NONSPECIFIC T-WAVE ABNORMALITY No previous ECG available for comparison Electronically Signed On 05-28-2023 19:13:33 ACCOUNTS OFFICER by Zachariah Vicente M.D. [id number]
[2023-05-27 03:14] LABS: Basophils # 0.1 10^3/uL (0.0-0.1); Basophils % 0.9 %; Eosinophils # 0.5 10^3/uL (0.0-0.8); Eosinophils % 4.2 %; Hematocrit 45.7 % (36-47); Lymphocytes # 3.6 10^3/uL (0.8-4.8); Lymphocytes % 30.6 %; Mean Corpuscular HGB Conc 32.6 g/dL (30-55); Mean Corpuscular Hemoglobin 27.5 pg (27-33); Mean Corpuscular Volume 84.3 fl (85-98); Mean Platelet Volume 9.4 fL (7.4-10.4); Monocytes # 1.1 10^3/uL (0.2-0.9); Monocytes % 9.3 %; Neutrophils # 6.33 10^3/uL (1.8-7.7); Neutrophils % 54.4 %; Nucleated Red Blood Cells % 0 %; Platelet Count 496 10^3/cmm (157-399); Red Blood Count 5.42 10^6/uL (3.85-5.65); Red Cell Distribution Width 13.3 % (12.1-15.1); White Blood Count 11.62 10^3/uL (3.29-11.43)
--- NOTE | 2023-05-27 03:16 | ED_ITS ---
HPI - General Adult 2 General: Chief complaint: General Medical Stated complaint: Chest Pain Time Seen by Provider: 05/27/23 03:02 History of Present Illness: Patient presents to the ER with complaints of high blood pressure and headache. Patient said her blood pressure at home was 180. Patient took metoprolol 25 mg at home with no relief. Patient denies chest pain at this time. Patient says she is mildly short of breath. Patient says usually happens when her blood pressure gets up really high. Patient denies any diaphoresis, chest pain at this time. Review of Systems 2 General: Reports: 10 or more systems reviewed and unremarkable except in HPI and below PFSH ED 2 PFSH: Medical History No pertinent past medical history neghx: dm,thyroid,dvt/pe PCP: Amanda Hardwick Schizo affective schizophrenia Hypertension Surgical History History of laparotomy (07/22/22) Myomectomy performed at this time by Dr. Johnson. S/P myomectomy (~07/22/22) Family History Mother Diabetes Hypertension Stroke Endometriosis Father Heart disease Hypertension Stroke Grandfather Heart disease Paternal Hypertension Maternal and Paternal Grandmother Hypertension Maternal and Paternal Ovarian cancer Maternal--dx age 60's Denies family history of Colon cancer Hypercholesteremia Breast cancer Uterine cancer Thyroid disease Physical Exam 2 Const: COMMON NORMALS: no acute distress, average body habitus, patient oriented x3, no limitations, healthy appearing, alert and well nourished HENMT: COMMON NORMALS: normocephalic, atraumatic, hearing grossly normal bilaterally, external ears normal, Normal external nose present, moist oral mucous membranes and oropharynx normal HEAD & SCALP: normocephalic and atraumatic NOSE: Normal external nose present EXTERNAL EAR: Yes external ears normal Neck/C-Spine: COMMON NORMALS: no JVD Chest: COMMONS NORMALS: normal inspection of the chest and normal palpation of entire chest wall Resp: COMMON NORMALS: normal respiratory effort, No retractions, No use of accessory muscles and clear to auscultation bilaterally AUSCULTATION: clear to auscultation bilaterally Cardio: COMMON NORMALS: no JVD, regular rate, regular rhythm, S1 normal heart sound present, S2 normal heart sound present, No gallops present (Cardio), No clicks present (Cardio), No murmurs present (Cardio) and No rub (Cardio) R ATE: regular rate RHYTHM: regular rhythm HEART SOUNDS: S1 normal heart sound present and S2 normal heart sound present GI: COMMON NORMALS: Normal to inspection, nondistended, normoactive bowel sounds present, Soft to palpation, non-tender, No hepatosplenomegaly present and no masses PALPATION: Yes Soft to palpation and Yes No hepatosplenomegaly present Neuro: COMMON NORMALS: patient oriented x3 SENSORIUM/ORIENTATION: Yes alert Course 2 Vital Signs: Vital signs: Vital Signs Temperature 97.7 F 05/27/23 03:04 Pulse Rate 85 05/27/23 03:46 Respiratory Rate 20 H 05/27/23 03:46 Blood Pressure 130/92 05/27/23 03:46 Pulse Oximetry 95 05/27/23 03:46 Oxygen Delivery Me thod Room Air 05/27/23 03:46 MDM - General Adult Medical Decision Making Patient presents to the ER with high blood pressure and headache. Patient was worked up in a standard fashion with x-ray showed no acute findings, lab work was essentially benign, troponin was negative. Patient blood pressure initially was 175/118 patient was given 0.1 mg clonidine which brought her blood pressure down to 130/92 and helped her headache. Patient stated she is ready to be discharged. Patient will follow-up with her PCP in approximately 7 days for further evaluation and treatment. Differential Diagnosis Hypertension, headache Medical Records I reviewed the patient's medical records. Lab Data I reviewed the patient's lab results. 05/27/23 03:09 05/27/23 03:09 Radiology Impressions Chest X-Ray 05/27/23 03:07 IMPRESSION: No acute findings. Laboratory Results WBC 11.62 10^3/uL (3.29-11.43) H 05/27/23 03:09 RBC 5.42 10^6/uL (3.85-5.65) 05/27/23 03:09 Hgb 14.90 g/dL (11.27-16.99) 05/27/23 03:09 Hct 45.7 % (36-47) 05/27/23 03:09 MCV 84.3 fl (85-98) L 05/27/23 03:09 MCH 27.5 pg (27-33) 05/27/23 03:09 MCHC 32.6 g/dL (30-55) 05/27/23 03:09 RDW 13.3 % (12.1-15.1) 05/27/23 03:09 Plt Count 496 10^3/cmm (157-399) H 05/27/23 03:09 MPV 9.4 fL (7.4-10.4) 05/27/23 03:09 Neut % (Auto) 54.4 % 05/27/23 03:09 Lymph % (Auto) 30.6 % 05/27/23 03:09 [place] % (Auto) 9.3 % 05/27/23 03:09 Eos % (Auto) 4.2 % 05/27/23 03:09 Baso % (Auto) 0.9 % 05/27/23 03:09 Neut # (Auto) 6.33 10^3/uL (1.8-7.7) 05/27/23 03:09 Lymph # (Auto) 3.6 10^3/uL (0.8-4.8) 05/27/23 03:09 [place] # (Auto) 1.1 10^3/uL (0.2-0.9) H 05/27/23 03:09 Eos # (Auto) 0.5 10^3/uL (0.0-0.8) 05/27/23 03:09 Baso # (Auto) 0.1 10^3/uL (0.0-0.1) 05/27/23 03:09 Nucleated RBC % (auto) 0 % 05/27/23 03:09 Nucleated RBCs # 0.0 /100WBC 05/27/23 03:09 Sodium 140 mmol/L (136-145) 05/27/23 03:09 Potassium 4.2 mmol/L (3.5-5.1) 05/27/23 03:09 Chloride 103 mmol/L (98-107) 05/27/23 03:09 Carbon Dioxide 27 mmol/L (22-29) 05/27/23 03:09 Anion Gap 14.2 (5-19) 05/27/23 03:09 BUN 7 mg/dL (6-20) 05/27/23 03:09 Creatinine 0.7 mg/dL (0.5-0.9) 05/27/23 03:09 GFR Calculation 95.2 mL/min (90-130) 05/27/23 03:09 Glucose 112 mg/dL (65-115) 05/27/23 03:09 Calculated Osmolality 289 mOsm/kg (285-295) 05/27/23 03:09 Calcium 10.0 mg/dL (8.5-10.5) 05/27/23 03:09 Total Bilirubin 0.2 mg/dL (0.15-1.2) 05/27/23 03:09 AST 27 U/L (0-32) 05/27/23 03:09 ALT 45 U/L (0-33) H 05/27/23 03:09 Alkaline Phosphatase 106 U/L (35-105) H 05/27/23 03:09 Troponin T Baseline < 6 ng/L (0-10) 05/27/23 03:09 Total Protein 7.1 g/dL (6.6-8.7) 05/27/23 03:09 Albumin 4.7 g/dL (3.5-5.2) 05/27/23 03:09 Globulin 2.4 g/dL (1.3-4.6) 05/27/23 03:09 All radiology interpretation(s) finalized by discharge EKG Data EKG 1: I personally reviewed and interpreted this EKG as follows: EKG interpretation date: 05/27/23 EKG interpretation time: 03:06 Prior EKG tracings: not available for review Interpretation: EKG shows ventricular rate 92 beats minute, NE interval 139, QRS duration 89, QTc of 388, sinus rhythm, nonspecific T wave abnormality Computer generated interpretation: Chest X-Ray 05/27/23 03:07 IMPRESSION: No acute findings. Discharge Plan Discharge Patient Disposition: Home Clinical Impression: Hypertension, Headache Condition: Stable Prescriptions: No Action venlafaxine 150 mg tablet extended release 24 hr 112.5 mg PO DAILY bupropion HCl [Wellbutrin XL] 300 mg tablet extended release 24 hr 300 mg PO QAM lisinopril 20 mg tablet 40 mg PO DAILY risperidone [Risperdal] 2 mg tablet 2 mg PO DAILY hydroxyzine HCl 25 mg tablet 25 mg PO BID PRN (Reason: Anxiety) multivitamin Tablet 1 tab PO DAILY cyclobenzaprine 10 mg tablet 10 mg PO BID PRN (Reason: muscle spasm) Qty: 20 0RF labetalol 100 mg tablet 100 mg PO BID acetaminophen 325 mg capsule 325 mg PO Q4H MDD Postoperative pain PRN (Reason: fever or pain) Qty: 60 0RF ibuprofen 800 mg tablet 800 mg PO TID PRN (Reason: pain) Qty: 60 0RF Discharge Orders: Discharge ED (Routine); Ordered 05/27/23 Ordered By: Rene Waite Referrals: Amanda Hardwick [Primary Care Provider] - Patient Instructions: Hypertension (ED), Headache Activity Restrictions/Additional Instructions: Please take all medicine as prescribed. Please follow-up with your family practice physician and/or airframe and power plant mechanic within the next 7 to 10 days if possible. Please keep a blood pressure log and take this to your appointment. If your blood pressure becomes uncontrollable or your headache worsens due to this please feel free to return to the ER. Coding Level of Care Code ED Component Engineer for Monica Thacker
[2023-05-27 03:24] VITALS: BP 175/118; PULSE 100; RESP 16; O2SAT 97
[2023-05-27 03:28] VITALS: BP 175/118
[2023-05-27] MEDS: cloNIDine 0.1 mg Tablet PO (03:28)
[2023-05-27 03:35] LABS: Troponin(5th) Baseline < 6 ng/L (0-10)
[2023-05-27 03:36] LABS: Alanine Aminotransferase 45 U/L (0-33); Albumin Level 4.7 g/dL (3.5-5.2); Alkaline Phosphatase 106 U/L (35-105); Anion Gap 14.2 (5-19); Aspartate Amino Transferase 27 U/L (0-32); Blood Urea Nitrogen 7 mg/dL (6-20); Carbon Dioxide 27 mmol/L (22-29); Chloride 103 mmol/L (98-107); Globulin 2.4 g/dL (1.3-4.6); Glomerular Filtration Rate 95.2 mL/min (90-130); Glucose 112 mg/dL (65-115); Osmolality Calculated 289 mOsm/kg (285-295); Potassium 4.2 mmol/L (3.5-5.1); Sodium 140 mmol/L (136-145); Total Bilirubin 0.2 mg/dL (0.15-1.2); Total Protein 7.1 g/dL (6.6-8.7)
[2023-05-27 03:46] VITALS: BP 130/92; PULSE 85; RESP 20; O2SAT 95
[2023-05-27 04:23] VITALS: BP 127/85; PULSE 18; RESP 16; O2SAT 97
== END 2023-05-27 04:24 | disposition home or self-care (01) ==
PROVIDERS: Emergency Provider Emergency Medicine; PCP Nurse Practitioner Family
DX: I10 Essential (primary) hypertension (principal); R51.9 Headache, unspecified
CPT/HCPCS: 71045; 80053; 84484; 85025; 93005; 99285

== ENCOUNTER 2023-10-20 06:03 | Day surgery (SDC) | payer BC, SELFPAY ==
[2023-10-20 06:14] VITALS: BP 127/86; PULSE 83; RESP 16; TEMP 36.3; O2SAT 97
[2023-10-20] MEDS: sodium chloride 0.9% 1,000 ML 30 ML IV (06:24)
--- NOTE | 2023-10-20 06:29 | P.ANESASSM_ITS ---
Pre-Anesthetic Assessment Height/Weight: Height 1.68 m Weight 90.718 kg Temp Pulse Resp BP Pulse Ox O2 Del Method 97.4 F L 83 16 127/86 97 Room Air 10/20/23 06:14 10/20/23 06:14 10/20/23 06:14 10/20/23 06:14 10/20/23 06:14 10/20/23 06:14 Preop Diagnosis: Dysphagia Operation Date: 10/20/23 07:00 Proposed Procedures p EGD Dilation W/ Balloon 76594, R13.10 , K21.9(Not Applicable) - Willian Murguia DO Familial anesthetic complications: None Was Beta Aracelis taken within 24 hours: Yes Was Clonidine taken within 24 hours: N/A Last intake: Intake Last Liquid Date 10/19/23 Last Liquid Time 19:00 Last Solid Date 10/19/23 Last Solid Time 19:00 Social Alcohol (Few times a week) and No tobacco (Vapes) Exam alert, oriented x 3, clear to auscultation bilaterally and regular rate & rhythm Airway Submandibular: within normal limits Cervical ROM: within normal limits Mallampati: Class III Dentition: full History/ROS No significant history except as noted and No significant complaints Pulmonary Cough CV/HEM Arrythmia, Hypertension and Palpitations None reported Hepatic None reported GI Gastroesophageal Reflux Disease (Controlled with meds) Dysphagia Metabolic Morbid Obesity [facility] None reported Neuropsych Anxiety and Depression Anesthetic Plan ASA status: 2 Anesthesia: Anesthesia Evaluation, General and MAC Risk of > 500 ml blood loss (7ml/kg in children): No Medications/Allergies Home Medications Medication Instructions Recorded Confirmed Last Taken Type bupropion HCl 300 mg 24 hr tablet, 300 mg PO DAILY 02/25/22 10/20/23 10/19/23 History extended release (Wellbutrin XL) hydroxyzine HCl 25 mg tablet 25 mg PO BID PRN Anxiety 02/25/22 10/18/23 07/18/22 History lisinopril 20 mg tablet 40 mg PO DAILY 02/25/22 10/20/23 10/19/23 History risperidone 2 mg tablet (Risperdal) 2 mg PO DAILY 02/25/22 10/20/23 10/19/23 History venlafaxine 150 mg tablet,extended 112.5 mg PO DAILY 02/25/22 10/20/23 10/19/23 History release 24 hr labetalol 100 mg tablet 100 mg PO BID 07/20/22 10/20/23 10/20/23 History pantoprazole 40 mg tablet,delayed 40 mg PO BID 6 weeks #84 tabs 10/04/23 10/20/23 10/20/23 Rx release (Protonix) Allergies Allergy/AdvReac Type Severity Reaction Status Date / Time pineapple Allergy ALGY-Hives Verified 10/18/23 09:19 Current Medications Generic Name Dose Route Start Last Admin Trade Name Gilma PRN Reason Stop Dose Admin Sodium Chloride 1,000 mls @ 30 mls/hr 10/20/23 06:15 10/20/23 06:24 Sodium Chloride 0.9% IV 10/21/23 06:14 30 mls/hr .Q24H RAMA Administration PFSH Anesthesia Medical History No pertinent past medical history neghx: dm,thyroid,dvt/pe PCP: Amanda Hardwick Schizo affective schizophrenia Hypertension Surgical History History of laparotomy (07/22/22) Myomectomy performed at this time by Dr. Johnson. S/P myomectomy (~07/22/22) Family History Mother Diabetes Hypertension Stroke Endometriosis Father Heart disease Hypertension Stroke Grandfather Heart disease Paternal Hypertension Maternal and Paternal Grandmother Hypertension Maternal and Paternal Ovarian cancer Maternal--dx age 60's Denies family history of Colon cancer Hypercholesteremia Breast cancer Uterine cancer Thyroid disease Social History Smoking and tobacco/nicotine status: former use of tobacco/nicotine Second hand smoke exposure: No Alcohol intake: current Alcohol intake frequency: few times a week Alcohol type: beer Substance/Drug Use: never Data Anesthesia Cardiac Studies: No Data to Display
--- NOTE | 2023-10-20 06:59 | W.PM.OPSUD ---
Surgery/Procedure H&P Update DATE OF PROCEDURE: October 20, 2023 DATE H&P PERFORMED: 10/04/23 H&P UPDATE INFORMATION: I have reviewed H&P completed within last 30 days, I have examined patient prior to procedure and No changes to prior documentation PREOP DIAGNOSIS: Dysphagia PLANNED PROCEDURE: Operation Date: 10/20/23 07:00 Proposed Procedures p EGD Dilation W/ Balloon 59963, R13.10 , K21.9(Not Applicable) - Willian Murguia DO
[2023-10-20] MEDS: EPINEPHrine 1 mg/mL INJ XX (07:28)
[2023-10-20 07:29] VITALS: BP 112/72; PULSE 91; RESP 18; TEMP 36.2; O2SAT 92
[2023-10-20 07:33] VITALS: BP 115/63; PULSE 85; RESP 16; O2SAT 94
[2023-10-20 07:37] VITALS: BP 99/62; PULSE 87; RESP 16; O2SAT 91
[2023-10-20 07:46] VITALS: BP 94/63; PULSE 82; RESP 16; O2SAT 96
[2023-10-20 07:52] VITALS: BP 116/75; PULSE 84; RESP 16; O2SAT 93
[2023-10-20 08:04] LABS: OR HCG Qualitative Urine Negative (Negative)
--- NOTE | 2023-10-20 14:37 | ANE.PACU2 ---
Inpatient post-anesthesia follow up: Airway intact: Yes Vital signs: Temperature 97.2 F Pulse Rate 84 Respiratory Rate 16 Blood Pressure 116/75 Pulse Oximetry 93 Oxygen Delivery Me thod Room Air Oxygen Flow Rate 4 Fraction of Inspir ed Oxygen Hydration adequate: Yes Nausea and vomiting: No Pain level: 2 Mental status: Baseline
== END 2023-10-20 08:18 | disposition home or self-care (01) ==
PROVIDERS: Anesthesiology; PCP Nurse Practitioner Family; Visit Provider Surgery
DX: K21.00 Gastro-esophageal reflux disease with esophagitis, without bleeding (principal); K29.30 Chronic superficial gastritis without bleeding
CPT/HCPCS: 43239; 43249; 81025; 88305; J0171; J2704; J7030

== ENCOUNTER → 2023-10-31 11:52 | Outpatient (BNVA) | payer BC, SELFPAY | PROVIDERS: PCP Nurse Practitioner Family | DX: R05.9 Cough, unspecified (principal); J45.21 Mild intermittent asthma with (acute) exacerbation; J20.8 Acute bronchitis due to other specified organisms; B96.89 Other specified bacterial agents as the cause of diseases classified elsewhere | CPT/HCPCS: 87426 ==

== ENCOUNTER → 2023-11-16 09:55 | Outpatient (BNVA) | payer BC, SELFPAY | PROVIDERS: PCP Nurse Practitioner Family; Visit Provider Nurse Practitioner Family | DX: R39.9 Unspecified symptoms and signs involving the genitourinary system (principal) | CPT/HCPCS: 81000; 87086 ==

== ENCOUNTER → 2023-11-18 12:01 | Outpatient (BNVA) | payer BC, SELFPAY | PROVIDERS: PCP Nurse Practitioner Family; Visit Provider Surgery | DX: R10.9 Unspecified abdominal pain (principal); K29.70 Gastritis, unspecified, without bleeding | CPT/HCPCS: 36415; 82784; 83516 ==

== ENCOUNTER 2023-11-26 07:29 | Outpatient (CLI) | payer BC, SELFPAY ==
--- NOTE | 2023-11-26 08:00 | NM_ITS ---
WS: [id number] NUCLEAR MEDICINE GASTRIC STUDY CLINICAL INFORMATION: abdominal pain TECHNIQUE: Following oral ingestion of cooked egg mixed with 1.03 mCi technetium 99m sulfur colloid, anterior images of the stomach were obtained over the course of 90 minutes. Activity curve was perfor med over the course of 90 minutes with linear regression analysis. COMPARISON: None. FINDINGS: Gastric emptying T1 half = 28.8 minutes 41% gastric emptying at 15 minutes 67% gastric emptying at 41 minutes NM/[place] [id number] IMPRESSION: 1. Rapid gastric emptying with T1 half of only 28.8 minutes *Normal median T1 half 90 minutes for solid egg meal (45-110 minutes). Delayed gastric retention is defined as 90% retained at 1 hour, 60% at 2 hour s, 30% at 3 hours, and 10% at 4 hours (normal percent gastric retention is 37-9 0% at 1 hour, 30-60% at 2 hours, and 0-10% at 4 hours).
== END 2023-11-26 07:30 | disposition home or self-care (01) ==
PROVIDERS: PCP Nurse Practitioner Family; Visit Provider Surgery
DX: R10.9 Unspecified abdominal pain (principal)
CPT/HCPCS: 78264; A9541

== ENCOUNTER → 2024-02-18 12:23 | Outpatient (BNVA) | payer BC, SELFPAY | PROVIDERS: PCP Nurse Practitioner Family; Visit Provider Nurse Practitioner | DX: R30.0 Dysuria (principal); R39.11 Hesitancy of micturition | CPT/HCPCS: 81000; 87086 ==

== ENCOUNTER 2024-06-15 09:21 | Day surgery (SDC) | payer OTHER, SELFPAY ==
[2024-06-15] VITALS (9 sets, daily range): BP systolic 90–123; BP diastolic 63–79; PULSE 77–90; RESP 16–18; TEMP 36.1–36.6; O2SAT 91–97
[2024-06-15] MEDS: sodium chloride 0.9% 1,000 ML 30 ML IV (10:07)
--- NOTE | 2024-06-15 10:07 | W.PM.OPSUD ---
Surgery/Procedure H&P Update DATE OF PROCEDURE: June 15, 2024 DATE H&P PERFORMED: 06/15/24 H&P UPDATE INFORMATION: I have reviewed H&P completed within last 30 days, I have examined patient prior to procedure and No changes to prior documentation PREOP DIAGNOSIS: menorrhagia PLANNED PROCEDURE: Operation Date: 06/15/24 10:55 Proposed Procedures p Endometrial Ablation 45107, N93.9(Not Applicable) - Junaid Nina MD
[2024-06-15 10:17] LABS: OR HCG Qualitative Urine Negative (Negative)
--- NOTE | 2024-06-15 10:52 | PC.NURSE ---
length 5.5, width 3.5, 106 power, 0:41 time
--- NOTE | 2024-06-15 11:34 | ANES.PREANE2 ---
Pre-Anesthetic Assessment Height/Weight: Height 1.68 m Temp Pulse Resp BP Pulse Ox O2 Del Method O2 Flow Rate 97.0 F L 82 16 115/63 95 Simple Mask 10 06/15/24 11:08 06/15/24 11:23 06/15/24 11:23 06/15/24 11:23 06/15/24 11:23 06/15/24 11:23 06/15/24 11:23 Preop Diagnosis: menorrhagia Operation Date: 06/15/24 10:55 Proposed Procedures p Endometrial Ablation 12697, N93.9(Not Applicable) - Junaid Nina MD Familial anesthetic complications: none Was Beta Aracelis taken within 24 hours: Yes Was Clonidine taken within 24 hours: N/A Last intake: Intake Last Liquid Date 06/14/24 Last Liquid Time 20:00 Last Solid Date 06/14/24 Last Solid Time 20:00 Social No alcohol and No tobacco Exam alert, oriented x 3, clear to auscultation bilaterally and regular rate & rhythm Airway Submandibular: within normal limits Cervical ROM: within normal limits Mallampati: Class II Dentition: full CV/HEM Hypertension GI Gastroesophageal Reflux Disease Metabolic Morbid Obesity Neuropsych Anxiety and Depression Anesthetic Plan ASA status: 2 Anesthesia: General Medications/Allergies Home Medications Medication Instructions Recorded Confirmed Last Taken Type bupropion HCl 300 mg 24 hr tablet, 300 mg PO DAILY 02/25/22 06/15/24 06/14/24 History extended release (Wellbutrin XL) hydroxyzine HCl 25 mg tablet 25 mg PO BID PRN Anxiety 02/25/22 06/15/24 06/14/24 History lisinopril 20 mg tablet 40 mg PO DAILY 02/25/22 06/15/24 06/14/24 History risperidone 2 mg tablet (Risperdal) 2 mg PO DAILY 02/25/22 06/15/24 06/14/24 History venlafaxine 150 mg tablet,extended 112.5 mg PO DAILY 02/25/22 06/15/24 06/14/24 History release 24 hr labetalol 100 mg tablet 100 mg PO BID 07/20/22 06/15/24 06/15/24 History albuterol sulfate 90 mcg/actuation 2 inh inhalation Q6H PRN shortness 10/31/23 06/15/24 Unknown Rx aerosol inhaler of breath or wheezing #6.7 grams hydralazine 25 mg tablet 25 mg PO DAILY 06/14/24 06/15/24 06/15/24 History Allergies Allergy/AdvReac Type Severity Reaction Status Date / Time pineapple Allergy ALGY-Hivminerva Verified 06/14/24 11:59 Current Medications Generic Name Dose Route Start Last Admin Trade Name Freq PRN Reason Stop Dose Admin Sodium Chloride 1,000 mls @ 30 mls/hr 06/15/24 09:45 06/15/24 10:07 Sodium Chloride 0.9% IV 06/16/24 09:44 30 mls/hr .Q24H RAMA Administration PFSH Anesthesia Medical History No pertinent past medical history neghx: dm,thyroid,dvt/pe PCP: Amanda Hardwick Schizo affective schizophrenia Hypertension Surgical History History of laparotomy (07/22/22) Myomectomy performed at this time by Dr. Johnson. S/P myomectomy (~07/22/22) Family History Mother Diabetes Hypertension Stroke Endometriosis Father Heart disease Hypertension Stroke Grandfather Heart disease Paternal Hypertension Maternal and Paternal Grandmother Hypertension Maternal and Paternal Ovarian cancer Maternal--dx age 60's Denies family history of Colon cancer Hypercholesteremia Breast cancer Uterine cancer Thyroid disease Social History Smoking and tobacco/nicotine status: former use of tobacco/nicotine Female Reproductive History Date of last menstrual period: 06/14/24 Data Anesthesia Cardiac Studies: No Data to Display
--- NOTE | 2024-06-15 11:35 | ANE.PACU2 ---
Inpatient post-anesthesia follow up: Airway intact: Yes Vital signs: Temperature 97.0 F Pulse Rate 82 Respiratory Rate 16 Blood Pressure 115/63 Pulse Oximetry 95 Oxygen Delivery Me thod Simple Mask Oxygen Flow Rate 10 Fraction of Inspir ed Oxygen Hydration adequate: Yes Nausea and vomiting: No Pain level: 2 Mental status: Baseline
--- NOTE | 2024-06-15 12:05 | PM.OP ---
Operative Report Date of procedure: June 15, 2024 Pre-op diagnosis: heavy menstrual bleeding Post-op diagnosis: same Post-op findings: Normal endometrial cavity No endometrial polyps or fibroids Minimal endometrial tissue Global endometrial ablation following procedure Procedure done: Hysteroscopy Curettage of uterus Endometrial ablation with Novasure device Specimens removed/disposition: endometrial curettings Surgeon: Junaid Nina MD Anesthesia: MAC Estimated blood loss (mL): 0 Complications: none Findings: Normal endometrial cavity No endometrial polyps or fibroids Minimal endometrial tissue Global endometrial ablation following procedure Condition: stable Disposition: PACU Brief History: 34 y.o. with history heavy menstrual bleeding Procedure: Informed consent was obtained. The patient was taken to the OR and placed on the table. General endotracheal anesthesia was induced. The patient was then placed in dorsolithotomy position. The perineum were then prepped and draped in the usual fashion. A speculum was placed in the vagina. The anterior lip of the cervix was grasped with a sharp-toothed tenaculum. The uterus was sounded to 8 cm. The cervix was serially dilated with Hegar dilators. . A hysteroscope was placed into the endometrial cavity. The endometrial cavity was seen to be normal. There were no polyps or fibroids. There was minimal endometrial tissue. The hysteroscope was then removed. Endometrial curettage was done with a sharp curette. Endometrial tissue was sent to pathology. The Novasure device was then primed and inserted into the endometrial cavity. The cervical occlusion sleeve was advanced. Cavity integrity test was done. The device was activated for 60 seconds. The Novasure device was then removed. Repeat hysteroscopy showed an intact endometrial cavity with adequate global endometrial ablation. All instruments were then removed. The sharp-toothed tenaculum was removed. There was no bleeding from the endometrial cavity or cervix. The patient was then placed supine and awakened and taken to the PACU. Postop condition: stable EBL: 5 cc Sponge and instruments counts were normal x 2 Complications: none
== END 2024-06-15 12:20 | disposition home or self-care (01) ==
PROVIDERS: Anesthesiology; PCP Nurse Practitioner Family; Visit Provider Obstetrics & Gynecology
PROC: (CPT 58999; principal; 2024-06-15 10:35)
PROC: 0U598ZZ Destruction of Uterus, Via Natural or Artificial Opening Endoscopic (ICD-10-PCS; CPT 58563; 2024-06-15 10:35)
DX: N93.9 Abnormal uterine and vaginal bleeding, unspecified (principal); I10 Essential (primary) hypertension; K21.9 Gastro-esophageal reflux disease without esophagitis; Z87.891 Personal history of nicotine dependence
CPT/HCPCS: 58558; 81025; 88305; J1100; J1200; J2250; J2405; J2704; J3010; J7030